=== PATIENT | male | born 1950 | race American Indian/Alaskan Native ===

== ENCOUNTER 2019-03-17 11:28 | Day surgery (SDC) | payer MEDICARE ==
[2019-03-17] MEDS ORDERED: NACL 0.9% 1000 ML 1,000 ML IV SCH (13:00)
--- NOTE | 2019-03-17 14:09 | Anesthesia Day of Surgery ---
Anesthesia Day of Surgery - Day of Surgery Patient Examined: Yes Patient H&P Reviewed: Yes Patient is NPO: Yes Beta Blockers: Yes
--- NOTE | 2019-03-17 14:16 | Anesthesia Consultation ---
Anesthesia Consult and Med Hx Date of service: 03/17/19 - Pre-Operative Health Status Proposed Anesthetic Plan: MAC
[2019-03-17] MEDS ORDERED: DIPRIVAN 10 MG/ML IV ONE (14:34)
[2019-03-17] MEDS ORDERED: WATER FOR IRRIG STERILE IR ONE (14:35)
--- NOTE | 2019-03-17 16:28 | Operative Report ---
Operative Report Operative Report: Procedure: Esophagogastroduodenoscopy with balloon dilation of the esophagus. Attending physician: Dakota Mckeon M.D. Results Technician: Dakota Mckeon M.D. Indication: Patient is a 68-year-old male who presented with a history of dysphagia, abnormal weight loss with early satiety, abnormal weight loss. An u pper endoscopy is done to assess patient so that treatment may be directed based on the findings. Consent: Informed consent was obtained after advising the patient and family regarding nature of this procedure, its indications, potential benefits as well as possible complications including but not limited to bleeding perforation and adverse reaction to medication, infection as well as other cardiopulmonary complications. An informed written and verbal consent was then obtained after due opportunity was provided for questions and answers. Monitoring: Patient was monitored continuously with pulse oximetry and electrocardiographic recordings as well as blood pressure recordings. Vital signs remained stable throughout this procedure with no untoward events. Preoperative assessment: Patient was assessed immediately prior to this procedure for capacity to tolerate monitored anesthesia care and moderate sedation as well as general anesthesia. Patient's ASA classification is 3, Mallampati class is 2, Hyomental distance is 3. Instrument: Emotifyn video endoscope Medications: Propofol given intravenously in divided doses. For details please refer to anesthesia records. Description of procedure: Patient was placed in the left lateral decubitus position after achieving sedation, the endoscope was introduced into the esophagus under direct vision. The esophagus was very tortuous and dilated proximally, with distal tapering to an distal area of stricture. This was at about 32 cm. The endoscope could not pass beyond this point. A controlled radial expansion balloon 8-12 mm balloon was then passed through the stricture and dilated slowly as much as possible to about 8 mm. It was noted that the esophagus could easily be distended and dilated however, after deflating the b alloon, the esophagus narrowed back to its original configuration. The endoscope could not pass through the narrowing The esophagus was again dilated with a balloon after which the procedure was completed. The stomach and the duodenum were not visualized. Findings: Patient has mid esophageal stricture and with proximal dilated esophagus with multiple rings. Biopsies were obtained from the mid esophagus for histopathology. Impression: Proximally dilated esophagus with multiple concentric rings Mid esophageal stricture status post dilation. Plan: Follow pathology report. Direct additional treatment based on the pathology report. The concern primarily is to rule out eosinophilic esophagitis. Additional recommendations will be made in outpatient follow-up
--- NOTE | 2019-03-17 16:29 | Discharge Summary ---
Short Stay Discharge Plan Activity: advance as tolerated Weight Bearing Status: Weight Bear as Tolerated Diet: regular Additional Instructions: Post Sedation D/C Instructions When you return home you may resume your regular diet unless otherwise directed. Go directly home from the hospital and rest quietly. You may resume normal activities tomorrow. Do NOT drive, return to work, operate any machinery or make any important personal or business decisions today. Do NOT drink any alcohol or take nerve or sleeping drugs. They add to the effects of the medicine still present in your body. Follow up with: PCP,FOLLOW UP, MD [Primary Care Provider] - 7 Days
[2019-03-17 16:43] VITALS: BP 139/76
== END 2019-03-17 11:29 | disposition home or self-care (01) ==
LOC: GIO 11:28
PROVIDERS: ATTEND Internal Medicine Gastroenterology
DX: K22.2 Esophageal obstruction (principal); K21.0 Gastro-esophageal reflux disease with esophagitis; J44.9 Chronic obstructive pulmonary disease, unspecified; Z79.899 Other long term (current) drug therapy; Z87.891 Personal history of nicotine dependence
CPT/HCPCS: 43239; 43249; 88305; 88312; C1726; J2704; J7030